=== PATIENT | male | born 1955 | race Caucasian/White ===

== ENCOUNTER 2017-04-01 12:25 | Inpatient (IN) | payer MEDICARE, BC, OTHER ==
[2017-04-01] VITALS (29 sets, daily range): BP systolic 97–158; BP diastolic 54–95; O2SAT 98
[~2017-04-01] VITALS: Ht 175.3 cm; Wt 138.8 kg
[2017-04-01] MEDS ORDERED: ONDANSETRON 4MG/2ML VIAL (J2405) IV PRN (12:45)
[2017-04-01 16:48] LABS: BASO % 0.3 % (0.0-1.0); EOS # 0.2 K/mm3 (0.0-0.50); EOS % 3.2 % (0.0-3.0); LARGE UNSTAINED CELL # 0.2 K/mm3 (0.0-0.4); LARGE UNSTAINED CELL % 3.2 % (0.0-4.0); LYMPH % 13.5 % (24.0-44.0); MEAN CORPUSCULAR HGB CONC 34.4 g/dl (32.0-36.5); MEAN CORPUSCULAR VOLUME 104.6 fl (80.0-96.0); MONO # 0.6 K/mm3 (0.0-0.8); NEUTROPHILS # 5.4 K/mm3 (1.8-7.7); NEUTROPHILS % 71.7 % (36.0-66.0); PLATELET COUNT, AUTOMATED 130 k/mm3 (150-450); RED CELL DISTRIBUTION WIDTH 12.7 % (11.5-14.5); WHITE BLOOD COUNT 7.6 K/mm3 (4.0-10.0)
[2017-04-01] MEDS ORDERED: CALC600T31 PO (16:57)
[2017-04-01] MEDS ORDERED: CALC500T49 PO (16:57)
[2017-04-01] MEDS ORDERED: TYLE325T5 PO (16:57)
[2017-04-01] MEDS ORDERED: LISI10TA4 PO (16:57)
[2017-04-01] MEDS ORDERED: ATEN50TA2 PO (16:57)
[2017-04-01] MEDS ORDERED: TRAM50TA2 PO (16:57)
[2017-04-01] MEDS ORDERED: POTA10CA PO (16:57)
[2017-04-01] MEDS ORDERED: ROCE1INJ4 INJ (16:57)
[2017-04-01] MEDS ORDERED: PRED1TABL PO (16:57)
[2017-04-01] MEDS ORDERED: PROT1TAB2 PO (16:57)
[2017-04-01] MEDS ORDERED: NYST10PW TOP (16:57)
[2017-04-01 16:58] LABS: INR 1.67
--- NOTE | 2017-04-01 16:58 | REP ---
Clinical: Chest pain. Rule out pneumonia. Comparison: None. Findings: Mediastinal adenopathy and perihilar atelectasis cannot be excluded. Evaluation is otherwise limited due to portable technique and underpenetration. Impression: Cannot exclude hilar opacities or perihilar atelectasis. Signed by Davie Echevarria MD 04/01/2017 04:49 P
[2017-04-01] MEDS ORDERED: traMADol 50 MG TAB PO PRN (17:00)
[2017-04-01] MEDS ORDERED: IPRASOL4 INH (17:00)
[2017-04-01] MEDS ORDERED: VITMTA PO (17:00)
[2017-04-01] MEDS ORDERED: LORA10TA2 PO (17:00)
[2017-04-01] MEDS ORDERED: VITA10002 PO (17:00)
[2017-04-01 17:12] LABS: ALBUMIN 2.1 GM/DL (3.2-5.2); ALBUMIN/GLOBULIN RATIO 0.58 (1.00-1.93); ALKALINE PHOSPHATASE 138 U/L (45-117); ALT/SGPT 34 U/L (12-78); ANION GAP 7 MEQ/L (8-16); AST/SGOT 121 U/L (15-37); BILIRUBIN,TOTAL 4.1 MG/DL (0.2-1.0); BLOOD UREA NITROGEN 8 MG/DL (7-18); CALCIUM LEVEL 7.4 MG/DL (8.8-10.2); CARBON DIOXIDE LEVEL 33 MEQ/L (21-32); CHLORIDE LEVEL 93 MEQ/L (98-107); CREATININE FOR GFR 0.56 MG/DL (0.70-1.30); GAMMA GLUTAMYLTRANSPEPTIDASE 412 U/L (15-85); GLOMERULAR FILTRATION RATE > 60.0 (>49); GLUCOSE, FASTING 99 MG/DL (80-110); POTASSIUM SERUM 3.8 MEQ/L (3.5-5.1); SODIUM LEVEL 133 MEQ/L (136-145); TOTAL PROTEIN 5.7 GM/DL (6.4-8.2)
[2017-04-01 17:16] LABS: THYROXINE (T4) 9.7 UG/DL (4.5-12.0)
[2017-04-01] MEDS ORDERED: ISOVUE-370 76% 100ML VIAL (Q9967) As Ordered ONE (17:38)
[2017-04-01] MEDS ORDERED: MAG SULF 1GM/100ML (MAG RUN) 1 GM in APPROPRIATE DILUENT 1 EA IV ONE (18:00)
--- NOTE | 2017-04-01 18:26 | REP ---
Clinical: Acute chest pain. Technique: Axial contrast enhanced images from the thoracic inlet to the upper abdomen using 100 ml Isovue 370 intravenous contrast material with coronal and sagittal re-formations. Findings: Satisfactory enhancement of the pulmonary vasculature is achieved and no filling defects are identified to suggest pulmonary embolus. Qkhvjtxs-tk-fjtgl bilateral pleural effusions and lower lobe atelectasis is appreciated along with cephalization and prominent pulmonary vasculature. Thoracic aorta is normal caliber without aneurysm or dissection. Heart and pericardium are normal. No pneumothorax. No obvious adenopathy. Surrounding musculoskeletal structures demonstrate age-related degenerative changes. Impression: No evidence for pulmonary embolus. Wccoqway-sk-nxawx bilateral pleural effusions with passive basilar atelectasis and cephalization. Findings suggest pulmonary venous congestion. Signed by Davie Echevarria MD 04/01/2017 06:17 P
[2017-04-01] MEDS ORDERED: INFLUENZA QUADRIVALENT PF VACCINE 0.5ML SYRINGE (90686) IM PRN (18:30)
--- NOTE | 2017-04-01 18:31 | REP ---
Clinical: Abdominal pain and distension. Technique: Axial contrast enhanced images from the lung bases to the pubic symphysis using 100 ml Isovue 370 intravenous contrast material with coronal and sagittal re-formations. Comparison: None. Findings: Lung bases demonstrate moderate to large pleural effusions and passive atelectasis. Visualized portions of the heart and pericardium appear normal and without cardiomegaly or significant atherosclerotic changes. Marked ascites is appreciated throughout the abdomen and pelvis. The liver demonstrates a subtle heterogeneity along with 1 cm simple cyst in the left lobe. Increased vasculature throughout the upper abdomen is appreciated. Findings may reflect a fluid changes related to hepatocellular disease including cirrhosis. Spleen, pancreas, bilateral adrenal glands and left kidney are normal. Right kidney includes 2 cm simple cyst. The enteric system is without obstruction or acute inflammatory process. Pelvis demonstrates normal bladder and age appropriate prostate/seminal vesicles. No free air. No obvious retroperitoneal adenopathy. Abdominal aorta without aneurysm or dissection. Musculoskeletal structures demonstrate age-related degenerative changes without focal osseous abnormality. Impression: 1. Marked ascites and heterogeneous appearance to the liver along with increased upper abdominal vasculature suggests hepatocellular disease and/or cirrhosis. 2. Incidental 1 cm hepatic cyst and 2 cm right renal cyst. 3. Lyvnqhgi-lh-khsog bilateral pleural effusions with passive atelectasis. Signed by Davie Echevarria MD 04/01/2017 06:22 P
[2017-04-01] MEDS: methylPREDNISolone INJ 125 MG/2 ML VIAL (J2930) IV SCH (18:35)
[2017-04-01] MEDS: PANTOPRAZOLE 40MG INJ (PROTONIX) (C9113) IV SCH (18:35)
[2017-04-01] MEDS: SPIRONOLACTONE 12.5MG PER 1/2 TABLET PO SCH (18:39)
[2017-04-01] MEDS: FUROSEMIDE 40 MG/4 ML VIAL (J1940) IV SCH (18:39)
--- NOTE | 2017-04-01 19:04 | HPE ---
DATE OF ADMISSION: 04/01/2017 PRIMARY CARE PROVIDER: Annie Medina COMMERCIAL DRAFTER: In the process of getting set up with Dr. Celeste. CHIEF COMPLAINT: Shortness of breath. HISTORY OF PRESENT ILLNESS: This is a 62-year-old male with an underlying medical history of morbid obesity, gastric bypass, obstructive sleep apnea, hypertension, congestive heart failure (CHF) with unknown ejection fraction, cirrhosis, alcohol abuse, pulmonary artery hypertension, bariatric surgery. The patient presented to [facility] with shortness of breath and worsening lower extremity swelling that has been present for the past month, was admitted to [facility] three days ago with persistent diarrhea. Initially, the patient improved. Over the course of the night, the patient developed an episode of fever with diarrhea times three and was also found to have pneumonia, as per physician's retail assistant at [facility]. Subsequently, request was made to transfer the patient to [facility] for further care. The patient denies any chest pain, pressure, or discomfort, abdominal pain. Does report worsening lower extremity swelling and worsening abdominal distention. Reported cough for the past week or so. Denies any chest pain. Currently denies any fevers or chills. Reported drinking 1/5th bottle of vodka, but the patient has been trying to cut down to about five beers. Last drink was 1 week ago. ALLERGIES: No known drug allergies. PAST MEDICAL HISTORY: 1. Morbid obesity with Chente-en-Y gastric bypass. 2. Hypertension. 3. Congestive heart failure (CHF), unknown ejection fraction. 4. Cirrhosis. 5. Alcohol abuse. 6. Pulmonary artery hypertension. 7. Obstructive sleep apnea on BiPAP. PAST SURGICAL HISTORY: 1. Cholecystectomy. 2. Gastric bypass. FAMILY HISTORY: Not contributing to the patient's current condition. Denies a family history of any cancer. SOCIAL HISTORY: The patient smokes cigars. Drinks about 1/5th bottle of vodka daily. Has been trying to cutdown to about four beers a day. Last drink was about 4 or 5 days ago. REVIEW OF SYSTEMS: The patient reported abdominal distention, lower extremity swelling and shortness of breath and cough. All other review of systems negative. Also reported by the physician's retail assistant that the patient had diarrhea at [facility], as well as one episode of fever. All other review of systems negative. MEDICATIONS: Prior to admission: The patient was given Rocephin and azithromycin at [facility] - acetaminophen 650 mg by mouth every 4 hours as needed - DuoNeb inhalation every 4 hours as needed - atenolol 10 mg by mouth daily - calcium 600 mg by mouth daily - vitamin B12 1000 mcg by mouth daily - Lisinopril 10 mg by mouth daily - loratadine 10 mg by mouth daily - multivitamin one tablet by mouth daily - nystatin powder topically daily - Protonix 40 mg by mouth daily - potassium chloride 10 mEq by mouth twice a day - prednisone 2 mg by mouth daily - tramadol 50 mg by mouth four times a day as needed PHYSICAL EXAMINATION : VITAL SIGNS: Temperature 98, pulse 84, respirations 22, blood pressure 120/77, pulse oximetry 95% on 2 liters nasal cannula. GENERAL: The patient is morbidly obese, alert and oriented times three. No acute distress. Pleasant. HEENT: Normocephalic, atraumatic. PULMONARY: Bilateral expiratory wheeze. Minimal rhonchi. CARDIAC: Regular S1, S2. ABDOMEN: Obese, distended, nontender. Hypoactive bowel sounds. EXTREMITIES: 3+ bilateral lower extremity edema. LABORATORY DATA: WBC 7.6, hemoglobin and hematocrit 13.5/39.2, platelets 130. Chemistry: Sodium 133, potassium 3.8, chloride 93, bicarbonate 33, BUN 8, creatinine 0.56, bilirubin 4.1, INR 1.67, C-reactive protein 9.16. ASSESSMENT AND PLAN: This is a 62-year-old male patient with underlying medical history of morbid obesity with gastric bypass, hypertension, congestive heart failure (CHF) with unknown ejection fraction, cirrhosis, alcohol abuse, pulmonary artery hypertension, obstructive sleep apnea, chronic obstructive pulmonary disease (COPD), smokes cigars, transferred from [facility] for fevers, diarrhea and worsening shortness of breath and found to have pneumonia. 1. Episode of fever with diarrhea and cough. Followup blood cultures and sputum cultures, respiratory panel, and gastrointestinal panel. The patient is on Rocephin and azithromycin for presumed pneumonia. C-reactive protein appreciated. Chest x-ray appreciated. 2. Chronic obstructive pulmonary disease (COPD) exacerbation. The patient is having significant wheeze on physical examination. Nebulizer treatment. Solu-Medrol has been ordered. Continue antibiotics, as mentioned above. Followup C-reactive protein. 3. Shortness of breath secondary to fluid overload. Possibly CHF exacerbation, also possibly related to cirrhosis. Ultrasound shows ascites. We will get CT scan for additional studies and confirmation. Diuresis with Lasix and spironolactone. Echocardiogram. Cardiac enzymes appreciated. BNP appreciated. Telemetry monitoring. 4. Hypertension. The patient is currently with borderline blood pressure. Holding rxrlbpzvwsp-fcrowvczid-tgnhsq (GIANNA) inhibitor given possibly for paracentesis. Continue Lasix and spironolactone for edema. 5. Cirrhosis with ascites secondary to alcohol with underlying alcoholic hepatitis. The patient's MELD score is 21. Discriminate function of 41.8. The patient will benefit from steroids. Currently, the patient is on Solu-Medrol for COPD. We will eventually switch it to prednisone. 6. Alcoholic hepatitis. Continue proton pump inhibitor. Continue atenolol. Monitor hemoglobin and hematocrit. Continue Rocephin. We will see if the patient's ascites are significant enough to do a paracentesis. Continue diuretics as ordered. 7. Alcohol abuse. Counseling provided. The patient has not drank for the past 4 to 5 days. 8. Pulmonary artery hypertension. Encourage CPAP. Echo ordered. 9. Obstructive sleep apnea. Encourage CPAP. Echo has been ordered. 10. Obesity, complicating care. 11. Deep vein thrombosis (DVT) prophylaxis. Heparin subcutaneously. DISPOSITION: Pending further workup, diuresis, echocardiogram and clinical improvement of pneumonia. We will get GI panel given the patient had diarrhea.
[2017-04-01] MEDS: IPRATROPIUM 0.5MG/ALBUTEROL 2.5MG INH SOL UD 3ML (DUONEB)(J7620) NEB SCH (19:54)
[2017-04-01 20:56] LABS: TOTAL PROTEIN, BODY FLUID 0.7 G/DL (NOT ESTABLISHED)
[2017-04-01 20:58] LABS: BF DIFF IF INDICATED? YES (NO); RBC ASCITES FLUID < 10 (<10mm3 cells/uL); TNC ASCITES FLUID 218 cells/uL (0-20)
[2017-04-01] MEDS ORDERED: OXAZEPAM 10 MG CAP PO PRN (21:15)
[2017-04-01] MEDS: HEPARIN SOD (PORCINE) 5000 UNITS/ML VIAL SC SCH (21:40)
[2017-04-01] MEDS: IPRATROPIUM 0.5MG/ALBUTEROL 2.5MG INH SOL UD 3ML (DUONEB)(J7620) NEB PRN (23:25)
[2017-04-01 23:48] LABS: CC BF DIFF EXAM CYTOCENTRIFUGE
[2017-04-02] VITALS (18 sets, daily range): BP systolic 94–139; BP diastolic 56–87
[2017-04-02] MEDS: IPRATROPIUM 0.5MG/ALBUTEROL 2.5MG INH SOL UD 3ML (DUONEB)(J7620) NEB SCH ×4 (02:00→20:00)
[2017-04-02 04:30] LABS: MEAN CORPUSCULAR HEMOGLOBIN 36.3 pg (27.0-33.0); MEAN CORPUSCULAR VOLUME 103.7 fl (80.0-96.0); RED CELL DISTRIBUTION WIDTH 12.9 % (11.5-14.5); WHITE BLOOD COUNT 4.5 K/mm3 (4.0-10.0)
[2017-04-02] MEDS: IPRATROPIUM 0.5MG/ALBUTEROL 2.5MG INH SOL UD 3ML (DUONEB)(J7620) NEB PRN (04:38)
[2017-04-02 04:41] LABS: INR 1.78
[2017-04-02 04:55] LABS: ALBUMIN 1.9 GM/DL (3.2-5.2); ALBUMIN/GLOBULIN RATIO 0.51 (1.00-1.93); ALKALINE PHOSPHATASE 110 U/L (45-117); ALT/SGPT 29 U/L (12-78); ANION GAP 8 MEQ/L (8-16); AST/SGOT 90 U/L (15-37); BILIRUBIN,TOTAL 3.2 MG/DL (0.2-1.0); BLOOD UREA NITROGEN 10 MG/DL (7-18); CALCIUM LEVEL 8.2 MG/DL (8.8-10.2); CARBON DIOXIDE LEVEL 31 MEQ/L (21-32); CHLORIDE LEVEL 95 MEQ/L (98-107); CREATININE FOR GFR 0.51 MG/DL (0.70-1.30); GLOMERULAR FILTRATION RATE > 60.0 (>49); GLUCOSE, FASTING 153 MG/DL (80-110); MAGNESIUM LEVEL 1.8 MG/DL (1.8-2.4); PHOSPHORUS LEVEL 3.4 MG/DL (2.5-4.9); POTASSIUM SERUM 3.4 MEQ/L (3.5-5.1); SODIUM LEVEL 134 MEQ/L (136-145); TOTAL PROTEIN 5.6 GM/DL (6.4-8.2)
[2017-04-02] MEDS: FUROSEMIDE 40 MG/4 ML VIAL (J1940) IV SCH ×2 (05:51→17:56)
[2017-04-02] MEDS: methylPREDNISolone INJ 125 MG/2 ML VIAL (J2930) IV SCH ×2 (05:51→17:55)
[2017-04-02] MEDS: HEPARIN SOD (PORCINE) 5000 UNITS/ML VIAL SC SCH ×3 (05:51→21:24)
[2017-04-02] MEDS ORDERED: POTASSIUM CHLORIDE 10 MEQ SR TABLET PO ONE ×2 (06:00→07:30)
--- NOTE | 2017-04-02 08:18 | RO ---
DATE OF PROCEDURE: 04/01/2017 PREPROCEDURE DIAGNOSIS: Ascites. POSTPROCEDURE DIAGNOSIS: Ascites. PROCEDURE: Paracentesis. SURGEON: Dr. Roula Drummond. BAND STRAIGHTENER: SEDATION: None. VENTILATION: Room air. ANESTHESIA: 1% local lidocaine. ESTIMATED BLOOD LOSS: Minimal. DESCRIPTION OF PROCEDURE: The patient was placed in the left lateral decubitus position. Ultrasound was used to locate the pocket of fluid. The patient was cleaned with ChloraPrep and covered in a sterile manner. 1% local lidocaine was used for superficial injection finding for deep injection. The skin was nicked and paracentesis needle was inserted. Skin traction was produced and paracentesis needle was inserted. Yellow clear fluids were obtained and subsequent catheter was advanced over the needle. Unfortunately, after only a tiny bit of fluid that was taken, the flow stopped despite repositioning. Two attempts were made. Each attempt after only a small amount of ascites fluid was obtained. The flow stops. Ultrasound was used to locate pockets of fluids on both attempts. The procedure was abandoned and fluid sample was sent. The catheter was removed and a dressing was placed. The patient tolerated the procedure with no complications. Fluid sample was sent off for additional analysis.
--- NOTE | 2017-04-02 08:20 | IPN ---
DATE OF SERVICE: 04/02/2017 A 62-year-old gentleman seen at bedside. No overnight issues reported. He is resting comfortably. He denies chest pain, dyspnea on exertion, abdominal pain. He does have some distention that he states is more than normal and was attempted to paracentesis yesterday; and, apparently, we were only able to get 30 mL. I did discuss with him trying again either today or tomorrow. Apparently, we do not have a provider in radiology to perform paracentesis until tomorrow. At any rate, this does not appear to be an emergent need for today. OBJECTIVE: Temperature is 97.1, pulse 87, respiratory rate is 18, blood pressure (BP) 114/69, SpO2 is 95% on bilateral positive airway pressure (BiPAP), which he uses for obstructive sleep apnea. HEENT: Unremarkable. Lungs: Clear. Heart: Regular rate and rhythm. Abdomen is obese, soft. There is some notable fluid wave, but he is nontender. Extremities: Trace edema at the ankles. Otherwise, unremarkable. No calf tenderness. LABORATORY DATA: White count 4.5, hemoglobin 12.5, platelets 107,000. Sodium is 134, potassium 3.4, chloride 95, bicarbonate 31, anion gap 8, BUN 10, creatinine 0.51, glucose is 153, magnesium 1.8, total bilirubin 3.2 down from 4.1, AST 90, ALT 29, alkaline phosphatase 110, albumin 1.9. PT 21.3, INR 1.78. Ascitic fluid was sent. It was only noted for 218 nucleated cells, normal whites. Neutrophils and lymphocytes were noted. A fluid culture is pending at this time. A panel is positive for rhinovirus and enterovirus. Urine culture is pending. ASSESSMENT AND PLAN: 1. Recurrent fevers, likely related to acute upper respiratory infection combined with gastroenteritis with rhinovirus and enterovirus. Will continue with symptomatic treatment. Chest x-ray is unremarkable for infiltrate or consolidation. 2. Shortness of breath, likely due to volume overload and cirrhosis and ascites. Will re-attempt to get an ultrasound-guided paracentesis tomorrow. 3. Ascites, as outlined above. Will continue to diurese with Lasix and spironolactone and see if we can get a paracentesis. 4. Cirrhosis, likely related to underlying alcoholism with alcoholic hepatitis. On admission, Model for End-Stage Liver Disease (MELD) score was 21. Discriminant function was 41.8 which is indicative of steroids and Rifaximin which we will start. 5. Alcoholic hepatitis. Will continue on proton pump inhibitor (PPI). Continue with antibiotics until our cultures are back to rule out spontaneous bacterial peritonitis (SBP). 6. Hypokalemia. Will replete. 7. Hypoalbuminemia. Will give him albumin transfusion today, as well. 8. Thrombocytopenia, likely related to underlying cirrhosis. 9. Deep venous thrombosis (DVT) prophylaxis, thromboembolic deterrents (TEDs) and sequentials. 10. History of congestive heart failure (CHF), unknown ejection fraction. Will continue to monitor. He is currently on Lasix and spironolactone. 11. Hypertension. Continue to monitor. 12. Obstructive sleep apnea. Continue on home settings for BiPAP. DISPOSITION: The patient does have a known history of alcohol and alcoholic cirrhosis with recurrent hepatitis and ascites. Will continue with treatment, as outlined above. I would like to have patient and family services (PFS) be involved and make sure that we have outpatient resources available when he moves closer to discharge. Regarding the prednisone, he will be on month-long taper. MTDD
[2017-04-02] MEDS: LORATADINE 10 MG TAB PO SCH (08:34)
[2017-04-02] MEDS: FOLIC ACID 1 MG TAB PO SCH (08:34)
[2017-04-02] MEDS: AZITHROMYCIN INJ 500 MG, VIAL MATE ADAPTER 1 EACH in D5W 250 ML IV SCH (08:34)
[2017-04-02] MEDS: CYANOCOBALAMIN 500 MCG TAB PO SCH (08:34)
[2017-04-02] MEDS: SPIRONOLACTONE 12.5MG PER 1/2 TABLET PO SCH ×2 (08:34→17:55)
[2017-04-02] MEDS: rifAXIMin 550 MG TAB (XIFAXAN) PO SCH ×2 (08:35→21:23)
[2017-04-02] MEDS: MULTIVITAMINS/MINERALS THERAP 1 TAB PO SCH (08:35)
[2017-04-02] MEDS: ATENOLOL 50 MG TAB PO SCH (08:35)
[2017-04-02] MEDS: THIAMINE 100 MG TAB PO SCH (08:35)
[2017-04-02] MEDS: NYSTATIN 100,000 UNITS/GM TOPICAL PWD 15 GM TOP SCH (09:00)
--- NOTE | 2017-04-02 12:37 | ECHO ---
DATE OF PROCEDURE: 04/01/2017 DATE OF : 1955 AGE: 62 GENDER: Male HEIGHT: 69 inches WEIGHT: 326 pounds BODY SURFACE AREA: 2.54 meters squared INPATIENT: ICU, Room 3209 REFERRING PHYSICIAN: Dr. Drummond INDICATION: CHF (unspecified). MEASUREMENTS: 2D Measurements: RV: 4.6 cm LV: 5.6 cm Septum: 1.1 cm Posterior wall: 1.1 cm Aortic root: 4.2 cm LA: 5.2 cm LVEF: 60-65% Doppler Measurements: AV: 1.4 m/s LVOT: 1.1 m/s MV-E: 77, A: 87, EA ratio: 0.9 Early mitral deceleration time: 250 ms E prime: 6.4, A prime: 14, E/E prime ratio: 12 COMMENTS: Normal sinus rhythm without apparent intraventricular conduction disturbance. Technically very difficult study in light of the patient's body habitus, but some diagnostically useful information was still obtained. Mild to moderately dilated left atrium with left ventricle mildly dilated. Right heart chamber sizes were at least mild to moderately increased. Left ventricular (LV) wall thickness was normal. On real-time imaging from the parasternal and apical projections, there appeared to be a degree of septal wall motion abnormality and flattening of the septum on the short axis projection from the parasternal sites. Other left ventricular tirado were hyperkinetic. No clear abnormality of the mitral valve with adequate leaflet excursion and no posterior systolic buckling. Unable to ascertain the number of aortic cusps but aortic cusp separation appeared to be normal. Aortic root was mildly dilated. There also appeared to be a small anterior echo free space but no evidence of cardiac chamber compression. Color flow Doppler study taken from the parasternal and apical projections showed trace mitral and tricuspid but no aortic insufficiency. Guided continuous wave Doppler of his aortic valve showed a normal peak systolic velocity against LV outflow tract obstruction. Pulsed and continuous wave Doppler of his LV inflow tract taken from the apical four-chamber projection showed normal diastolic filling velocities against mitral stenosis. There was more prominent late diastolic/atrial dependent filling pattern. Diastolic dysfunction was further confirmed by prolonged early mitral deceleration time and tissue Doppler of his mitral annulus. However, his estimated mean left atrial pressure at this time was within normal limits. We attempted to estimate his right ventricular systolic pressure using guided continuous wave Doppler of his tricuspid valve but could not get a clear spectral envelope. In light of his body habitus, we could not visualize his inferior vena cava to further estimate his central venous pressure. CONCLUSIONS: Technically difficult study in light of the patient's body habitus. Mildly dilated left ventricle with normal wall thickness and septal wall motion abnormality suspected to be due to right ventricular pressure overload. Preserved global left ventricular systolic function. Mild-moderately dilated left atrium with Doppler evidence of an impairment of LV diastolic function but currently normal estimated mean left atrial pressure. Mild-moderately dilated right heart chambers with somewhat reduced right ventricular wall motion, certainly in keeping with pulmonary hypertension, though we could not estimate this using guided continuous wace Doppler of his tricuspid valve. His inferior vena cava could not be visualized to estimate his central venous pressure. Very small pericardial effusion without evidence of cardiac chamber compression.
--- NOTE | 2017-04-02 13:21 | ECGEPIP ---
Stationary ECG Study [facility] Test Date: 2017-04-01 Pat Name: ELIAS OCONNOR Department: Room: [place] [address] Gender: M Wound Nurse: LOWELL : 1955 Requested By: GENTRY MIRANDA Order Number: [id number] Reading MD: Antolin Suh Measurements Intervals [place] Rate: 84 P: 58 WY: 152 QRS: 0 QRSD: 88 T: 31 QT: 406 QTc: 482 Interpretive Statements SINUS RHYTHM LOW QRS VOLTAGE IN PRECORDIAL LEADS Body habitus versus pulmonary disease. No prior tracing Electronically Signed On 04-02-2017 13:21:32 EDT by Antolin Suh
[2017-04-02] MEDS: cefTRIAXone SOD 2 GM in D5W MINI-BAG PLUS 50 ML IV SCH (14:08)
[2017-04-02] MEDS: PANTOPRAZOLE 40MG INJ (PROTONIX) (C9113) IV SCH (17:56)
[2017-04-03] VITALS (14 sets, daily range): BP systolic 103–132; BP diastolic 63–85
[2017-04-03] MEDS: IPRATROPIUM 0.5MG/ALBUTEROL 2.5MG INH SOL UD 3ML (DUONEB)(J7620) NEB SCH ×4 (01:07→20:00)
[2017-04-03 04:54] LABS: MEAN CORPUSCULAR HEMOGLOBIN 35.8 pg (27.0-33.0); MEAN CORPUSCULAR HGB CONC 34.3 g/dl (32.0-36.5); MEAN CORPUSCULAR VOLUME 104.2 fl (80.0-96.0); RED CELL DISTRIBUTION WIDTH 13.1 % (11.5-14.5); WHITE BLOOD COUNT 7.7 K/mm3 (4.0-10.0)
[2017-04-03 05:04] LABS: INR 1.76
[2017-04-03 05:17] LABS: ALBUMIN 2.1 GM/DL (3.2-5.2); ALKALINE PHOSPHATASE 107 U/L (45-117); ALT/SGPT 29 U/L (12-78); ANION GAP 9 MEQ/L (8-16); AST/SGOT 67 U/L (15-37); BILIRUBIN,TOTAL 2.3 MG/DL (0.2-1.0); BLOOD UREA NITROGEN 12 MG/DL (7-18); CALCIUM LEVEL 8.3 MG/DL (8.8-10.2); CARBON DIOXIDE LEVEL 31 MEQ/L (21-32); CHLORIDE LEVEL 98 MEQ/L (98-107); CREATININE FOR GFR 0.42 MG/DL (0.70-1.30); GLOMERULAR FILTRATION RATE > 60.0 (>49); GLUCOSE, FASTING 151 MG/DL (80-110); POTASSIUM SERUM 3.4 MEQ/L (3.5-5.1); SODIUM LEVEL 138 MEQ/L (136-145); TOTAL PROTEIN 5.6 GM/DL (6.4-8.2)
[2017-04-03] MEDS: HEPARIN SOD (PORCINE) 5000 UNITS/ML VIAL SC SCH ×3 (05:51→21:31)
[2017-04-03] MEDS: FUROSEMIDE 40 MG/4 ML VIAL (J1940) IV SCH ×2 (05:51→17:20)
[2017-04-03] MEDS: methylPREDNISolone INJ 125 MG/2 ML VIAL (J2930) IV SCH ×2 (05:51→17:19)
[2017-04-03] MEDS: CYANOCOBALAMIN 500 MCG TAB PO SCH (08:55)
[2017-04-03] MEDS: AZITHROMYCIN INJ 500 MG, VIAL MATE ADAPTER 1 EACH in D5W 250 ML IV SCH (08:55)
[2017-04-03] MEDS: LORATADINE 10 MG TAB PO SCH (08:55)
[2017-04-03] MEDS: SPIRONOLACTONE 12.5MG PER 1/2 TABLET PO SCH ×2 (08:55→17:19)
[2017-04-03] MEDS: ATENOLOL 50 MG TAB PO SCH (08:56)
[2017-04-03] MEDS: THIAMINE 100 MG TAB PO SCH (08:56)
[2017-04-03] MEDS: MULTIVITAMINS/MINERALS THERAP 1 TAB PO SCH (08:56)
[2017-04-03] MEDS: rifAXIMin 550 MG TAB (XIFAXAN) PO SCH ×2 (08:56→21:30)
[2017-04-03] MEDS: FOLIC ACID 1 MG TAB PO SCH (08:56)
[2017-04-03] MEDS: NYSTATIN 100,000 UNITS/GM TOPICAL PWD 15 GM TOP SCH (08:57)
[2017-04-03 12:52] LABS: SPEC. GRAVITY BODY FLUIDS 1.009 (NOT ESTABLISHED)
[2017-04-03] MEDS ORDERED: POTASSIUM CHLORIDE 10 MEQ SR TABLET PO ONE (13:00)
[2017-04-03 13:28] LABS: TOTAL PROTEIN, BODY FLUID 0.7 G/DL (NOT ESTABLISHED)
--- NOTE | 2017-04-03 13:55 | IPN ---
DATE OF EXAMINATION: 04/03/2017 SUBJECTIVE: This morning, the patient tells me that his breathing is feeling better but is not back to normal, but he does notice improvement over the last 24 hours. He denies chest pain, shortness of breath, lightheadedness, dizziness, or abdominal pain. OBJECTIVE: Vital signs: Temperature 98.8, pulse 81 regular, respiratory rate 20, blood pressure (BP) 114/71, oxygen (O2) saturation 93% on 2 liters nasal cannula. General: He is a morbidly obese man sitting peacefully, on his continuous positive airway pressure (CPAP), easily arousable with verbal stimuli. He does not appear to be in any acute distress. He was awake, alert, oriented times three. HEENT: He is wearing bifocal glasses. He has moist mucous membranes. No appreciable elevation in central venous pressure (CVP). Otherwise, a difficult examination secondary to enlarged neck and body habitus. Cardiovascular examination: S1, S2. He is not tachycardic at the time of my examination. Respiratory examination: Is quite clear. Abdominal examination: Is grossly obese. Shifting dullness. There is no tense ascites. Extremities: 1+ edema bilaterally. No asterixis. LABORATORY STUDIES: WBC 7.7, hemoglobin 0.9, platelet count 114. Chemistry panel: Sodium 138, potassium 3.4 repleted, chloride 98, bicarbonate 31, BUN 12, creatinine 0.4, AST 67 trending down, TSH within normal limits. INR 1.7. Ascites fluid studies reveals a total nucleated count of 218. MICROBIOLOGY: Is all thus far negative other than a human rhinovirus PCR which was positive. He received three infusions of albumin. IMAGING: He had a CT of the abdomen and pelvis that was completed on 04/01/2017 which revealed marked ascites and heterogeneous appearance to the liver along with increased upper abdominal vasculature suggesting hepatocellular disease or cirrhosis. Also, incidental 1 cm hepatic cyst and 2 cm right renal cyst. Odqtdynk-ry-qzqpp bilateral pleural effusions with passive atelectasis. He also did have a CT angiogram of the chest, which revealed no evidence of pulmonary embolism (PE). Mcfyrsqa-fx-owkkl bilateral pleural effusions with passive basilar atelectasis and cephalization consistent with pulmonary venous hypertension. ASSESSMENT AND PLAN: This is a 62-year-old man with rhinovirus infection. PROBLEMS: 1. Rhinovirus infection, likely the etiology for his fevers. Continue with symptomatic treatment and supportive care. My suspicion for a bacterial infection is low. Discontinuing all antibiotics. Continue with breathing treatments and weaning oxygen as tolerated. 2. Shortness of breath, hypoxia, possibly related to an infection. Also, likely a contributing factor of decompensated cirrhosis. We will continue to diurese him in an effort to keep him fluid negative. He does appear to be hypervolemic still. We will also complete another paracentesis today and remove excess volume and allowing his diaphragm to more easily inflate. I suspect that he will be significantly improved with the aforementioned efforts. 3. Liver cirrhosis, likely related to alcoholism and alcoholic hepatitis. AST is trending down. He is continued on beta joseph, thiamine, folic acid, rifaximine, Lasix, and Aldactone. 4. Pulmonary artery hypertension. The patient is currently on Solu-Medrol but can likely be transitioned to by mouth and transitioned to prednisone for his alcoholic liver cirrhosis and does not appear to be experiencing chronic obstructive pulmonary disease (COPD) exacerbation or any acute pneumonia. 5. Alcoholic hepatitis. As mentioned above, will continue to monitor. He does appear to be improving with avoidance of alcohol. He does not appear to be positive for spontaneous bacterial peritonitis (SBP). 6. Hypokalemia. Continue with diuresis. Will continue to replete. 7. Thrombocytopenia, likely related to cirrhosis. 8. Congestive heart failure. Likely related to liver disease. An echocardiogram was completed, which revealed an ejection fraction (EF) of 60% to 65%. There were moderately dilated right heart chambers, in keeping with pulmonary hypertension. 9. Hypertension. Continue with beta joseph. 10. Alcohol abuse. He is on folate, thiamine, multivitamin. We are monitoring closely all symptoms. He is not exhibiting any at this time. DISPOSITION: The patient could likely be discharged as early as tomorrow pending his improvement in shortness of breath.
[2017-04-03] MEDS: cefTRIAXone SOD 2 GM in D5W MINI-BAG PLUS 50 ML IV SCH (14:29)
--- NOTE | 2017-04-03 16:45 | REP ---
Ultrasound-guided paracentesis The procedure was performed under the direct supervision of Dr. Falcon. The risks and benefits of the procedure were explained to the patient and informed consent was obtained. The largest pocket of fluid was localized in the right lower quadrant using ultrasound guidance. The skin was prepped and draped in a sterile fashion. 1% lidocaine was used as a local anesthetic. Using ultrasound guidance an 8-Faroese multi side-hole catheter was inserted using trocar technique. 4950 ml of yellow colored fluid was withdrawn with a sample sent to the lab for analysis. The the patient tolerated the procedure well and there were no immediate complications. After the appropriate amount of monitored convalescence the patient was discharged from the department. Reviewed by FREDERIC Soto 04/03/2017 04:37 PSigned by Guicho Falcon MD 04/03/2017 04:37 P
[2017-04-03 16:52] LABS: RBC ASCITES FLUID < 10 (<10mm3 cells/uL); TNC ASCITES FLUID 106 cells/uL (0-20)
[2017-04-03 16:53] LABS: BF DIFF IF INDICATED? YES (NO)
[2017-04-03 16:54] LABS: CC BF DIFF EXAM CYTOCENTRIFUGE
[2017-04-03] MEDS: PANTOPRAZOLE 40MG INJ (PROTONIX) (C9113) IV SCH (17:20)
[2017-04-04] MEDS: IPRATROPIUM 0.5MG/ALBUTEROL 2.5MG INH SOL UD 3ML (DUONEB)(J7620) NEB SCH ×4 (00:52→20:23)
[2017-04-04] MEDS: methylPREDNISolone INJ 125 MG/2 ML VIAL (J2930) IV SCH (05:42)
[2017-04-04] MEDS: HEPARIN SOD (PORCINE) 5000 UNITS/ML VIAL SC SCH ×3 (05:42→21:03)
[2017-04-04] MEDS: FUROSEMIDE 40 MG/4 ML VIAL (J1940) IV SCH ×2 (05:43→17:36)
[2017-04-04 06:00] VITALS: BP 129/74
[2017-04-04 07:41] LABS: MEAN CORPUSCULAR HEMOGLOBIN 35.8 pg (27.0-33.0); MEAN CORPUSCULAR HGB CONC 33.9 g/dl (32.0-36.5); MEAN CORPUSCULAR VOLUME 105.4 fl (80.0-96.0); RED CELL DISTRIBUTION WIDTH 12.7 % (11.5-14.5); WHITE BLOOD COUNT 8.4 K/mm3 (4.0-10.0)
[2017-04-04 07:43] LABS: INR 1.65
[2017-04-04 08:10] LABS: ALBUMIN 2.7 GM/DL (3.2-5.2); ALBUMIN/GLOBULIN RATIO 0.69 (1.00-1.93); ALKALINE PHOSPHATASE 143 U/L (45-117); ALT/SGPT 39 U/L (12-78); ANION GAP 9 MEQ/L (8-16); AST/SGOT 91 U/L (15-37); BILIRUBIN,TOTAL 3.1 MG/DL (0.2-1.0); BLOOD UREA NITROGEN 16 MG/DL (7-18); CALCIUM LEVEL 8.9 MG/DL (8.8-10.2); CARBON DIOXIDE LEVEL 34 MEQ/L (21-32); CHLORIDE LEVEL 102 MEQ/L (98-107); CREATININE FOR GFR 0.62 MG/DL (0.70-1.30); GLOMERULAR FILTRATION RATE > 60.0 (>49); GLUCOSE, FASTING 132 MG/DL (80-110); MAGNESIUM LEVEL 2.2 MG/DL (1.8-2.4); POTASSIUM SERUM 4.2 MEQ/L (3.5-5.1); SODIUM LEVEL 145 MEQ/L (136-145); TOTAL PROTEIN 6.6 GM/DL (6.4-8.2)
[2017-04-04 08:45] VITALS: BP 118/64
[2017-04-04 10:29] VITALS: BP 118/64
[2017-04-04] MEDS: ATENOLOL 50 MG TAB PO SCH (10:29)
[2017-04-04] MEDS: rifAXIMin 550 MG TAB (XIFAXAN) PO SCH ×2 (10:30→21:03)
[2017-04-04] MEDS: CYANOCOBALAMIN 500 MCG TAB PO SCH (10:30)
[2017-04-04] MEDS: MULTIVITAMINS/MINERALS THERAP 1 TAB PO SCH (10:30)
[2017-04-04] MEDS: LORATADINE 10 MG TAB PO SCH (10:30)
[2017-04-04] MEDS: THIAMINE 100 MG TAB PO SCH (10:31)
[2017-04-04] MEDS: FOLIC ACID 1 MG TAB PO SCH (10:31)
[2017-04-04] MEDS: AZITHROMYCIN INJ 500 MG, VIAL MATE ADAPTER 1 EACH in D5W 250 ML IV SCH (10:32)
[2017-04-04] MEDS: NYSTATIN 100,000 UNITS/GM TOPICAL PWD 15 GM TOP SCH (10:33)
[2017-04-04] MEDS: SPIRONOLACTONE 12.5MG PER 1/2 TABLET PO SCH ×2 (12:04→17:36)
[2017-04-04 12:10] VITALS: BP 124/70
--- NOTE | 2017-04-04 13:54 | IPN ---
DATE: 04/04/2017 SUBJECTIVE: The patient tells me that his breathing much easily. He is more comfortable today. He denies any pain. He tells me that he has been up and ambulating and feels as though he is improved and back to his normal. OBJECTIVE: VITAL SIGNS: Temperature 96.6, pulse 73, respiratory rate 18, blood pressure 129/74, oxygen (O2) saturation 94% on room air. GENERAL: He is a very pleasant, obese man sitting on the edge of his bed. He does not appear to be in any acute distress whatsoever. HEENT: Cranial nerves II through XII are grossly intact. He has moist mucous membranes. I appreciate mild elevation of his central venous pressure (CVP). CARDIOVASCULAR EXAMINATION: S1, S2 regular. RESPIRATORY EXAMINATION: Quite clear. There are some mild bibasilar rales. ABDOMINAL EXAMINATION: Grossly obese. Extremities: No clubbing or cyanosis. There is trace edema bilaterally. LABORATORY STUDIES: WBC 8.4, hemoglobin 14.6, hematocrit 43.1, platelet count 148. Chemistry panel: Sodium 145, potassium 4.2, chloride 102, bicarbonate 34, BUN 16, creatinine 0.6, total bilirubin elevated at 3.1, AST elevated at 91, alkaline phosphatase elevated at 143. INR is 1.65. No new microbiology. Less than 250 nucleated cells on his ascites tap from yesterday. IMAGING: The patient did have a paracentesis completed yesterday, which removed almost 5 liters of yellow colored fluid. ASSESSMENT AND PLAN: This is a 62-year-old man with a rhinovirus infection. PROBLEMS: 1. Shortness of breath, likely secondary to rhinovirus infection. This is also the likely etiology for his fevers. He is now afebrile. He does appear to be improving. Also feel that his shortness of breath was contributed to by decompensated liver cirrhosis with ascites and the expansion of his diaphragm as well as some pulmonary edema. With continued diuresis with Lasix status post paracentesis and supportive care for his viral infection, his respiratory status does appear to be improving. He is on room air. I will have them check an ambulating oxygen saturation tomorrow to ensure that he has returned to his baseline and does not require any home oxygen requirement. He unfortunately has not cleared physical therapy and has to climb several steps before discharge. I will discontinue all antibacterials as there is no evidence of bacterial infection at this time. 2. Liver cirrhosis related to alcoholism and alcoholic hepatitis. Will continue his on beta-joseph, thiamine, folic acid, rifaximine, Lasix, and Aldactone. 4. Pulmonary artery hypertension/chronic obstructive pulmonary disease (COPD). He has been on Solu-Medrol for several days. At this point, I will transition him to prednisone for his alcoholic liver cirrhosis. At the present time, he appears to be doing quite well. He is not exhibiting any wheeze. He is on nebulizer treatments as needed. 5. Hypokalemia, resolved. 7. Thrombocytopenia, related to his cirrhosis. 8. Congestive heart failure, diastolic, also likely fluid retention related to liver disease as well. He had an echocardiogram that revealed a normal ejection fraction (EF) as well as moderately dilated right heart chambers , in keeping with pulmonary hypertension. Continue with diuresis and blood pressure control. 9. Hypertension. Continue with beta joseph. 10. Alcohol abuse. He is on folate, thiamine, and multivitamin. We are monitoring him for any withdrawal symptoms which he is not exhibiting. DISPOSITION: Pending resolution of his oxygen requirement and clearance from physical therapy. MTDD
[2017-04-04] MEDS: predniSONE 20 MG TAB PO SCH (13:59)
[2017-04-04 14:10] VITALS: BP 124/70
[2017-04-04] MEDS ORDERED: INFLUENZA QUADRIVALENT PF VACCINE 0.5ML SYRINGE (90686) IM ONE (15:00)
[2017-04-04] MEDS: PANTOPRAZOLE 40MG INJ (PROTONIX) (C9113) IV SCH (17:35)
[2017-04-04] MEDS: LACTOBACILLUS ACIDOPHILUS CAP (BACID) PO SCH (17:36)
[2017-04-04 21:07] VITALS: BP 122/78
[2017-04-05] MEDS: IPRATROPIUM 0.5MG/ALBUTEROL 2.5MG INH SOL UD 3ML (DUONEB)(J7620) NEB SCH ×2 (01:18→07:51)
[2017-04-05 05:05] VITALS: BP 117/70
[2017-04-05] MEDS: HEPARIN SOD (PORCINE) 5000 UNITS/ML VIAL SC SCH (05:53)
[2017-04-05] MEDS: FUROSEMIDE 40 MG/4 ML VIAL (J1940) IV SCH (05:53)
[2017-04-05 06:41] LABS: MEAN CORPUSCULAR HEMOGLOBIN 35.8 pg (27.0-33.0); MEAN CORPUSCULAR HGB CONC 33.3 g/dl (32.0-36.5); MEAN CORPUSCULAR VOLUME 107.7 fl (80.0-96.0); RED CELL DISTRIBUTION WIDTH 13.1 % (11.5-14.5); WHITE BLOOD COUNT 8.3 K/mm3 (4.0-10.0)
[2017-04-05 06:48] LABS: INR 1.66
[2017-04-05 06:53] LABS: ALBUMIN 2.4 GM/DL (3.2-5.2); ALKALINE PHOSPHATASE 134 U/L (45-117); ALT/SGPT 42 U/L (12-78); ANION GAP 10 MEQ/L (8-16); AST/SGOT 102 U/L (15-37); BILIRUBIN,TOTAL 3.6 MG/DL (0.2-1.0); BLOOD UREA NITROGEN 17 MG/DL (7-18); CALCIUM LEVEL 8.5 MG/DL (8.8-10.2); CARBON DIOXIDE LEVEL 31 MEQ/L (21-32); CHLORIDE LEVEL 101 MEQ/L (98-107); CREATININE FOR GFR 0.55 MG/DL (0.70-1.30); GLOMERULAR FILTRATION RATE > 60.0 (>49); GLUCOSE, FASTING 94 MG/DL (80-110); MAGNESIUM LEVEL 2.1 MG/DL (1.8-2.4); POTASSIUM SERUM 3.4 MEQ/L (3.5-5.1); SODIUM LEVEL 142 MEQ/L (136-145); TOTAL PROTEIN 6.4 GM/DL (6.4-8.2)
[2017-04-05] MEDS: THIAMINE 100 MG TAB PO SCH (08:42)
[2017-04-05] MEDS: CYANOCOBALAMIN 500 MCG TAB PO SCH (08:42)
[2017-04-05] MEDS: FOLIC ACID 1 MG TAB PO SCH (08:42)
[2017-04-05] MEDS: rifAXIMin 550 MG TAB (XIFAXAN) PO SCH (08:42)
[2017-04-05] MEDS: predniSONE 20 MG TAB PO SCH (08:42)
[2017-04-05] MEDS: SPIRONOLACTONE 12.5MG PER 1/2 TABLET PO SCH (08:42)
[2017-04-05] MEDS: MULTIVITAMINS/MINERALS THERAP 1 TAB PO SCH (08:42)
[2017-04-05] MEDS: LORATADINE 10 MG TAB PO SCH (08:42)
[2017-04-05] MEDS: LACTOBACILLUS ACIDOPHILUS CAP (BACID) PO SCH (08:42)
[2017-04-05] MEDS: NYSTATIN 100,000 UNITS/GM TOPICAL PWD 15 GM TOP SCH (08:43)
[2017-04-05] MEDS: ATENOLOL 50 MG TAB PO SCH (08:43)
[2017-04-05] MEDS ORDERED: SPIR25TA2 PO (10:20)
[2017-04-05] MEDS ORDERED: FOLI1TAB4 PO (10:20)
[2017-04-05] MEDS ORDERED: PRED10PA PO (10:20)
[2017-04-05] MEDS ORDERED: THIA100TA PO (10:20)
[2017-04-05] MEDS ORDERED: LASI40TA PO (10:26)
[2017-04-05] MEDS ORDERED: K-TA10TA2 PO (11:22)
[2017-04-05] MEDS ORDERED: POTASSIUM CHLORIDE 10 MEQ SR TABLET PO ONE (11:30)
--- NOTE | 2017-04-05 20:54 | DSES ---
DATE OF ADMISSION: 04/01/2017 DATE OF DISCHARGE: 04/05/2017 DISCHARGE DIAGNOSIS: Human rhinovirus/enterovirus infection. SECONDARY DIAGNOSES: 1. Shortness of breath. 2. Decompensated liver cirrhosis. 3. Pulmonary artery hypertension. 4. Decompensated chronic obstructive pulmonary disease. 5. Hypokalemia. 6. Thrombocytopenia. 7. Diastolic congestive heart failure. 8. Hypertension. 9. Alcohol abuse. HOSPITAL COURSE: The patient is a 62-year-old male who presented to the hospital initially on April 01, initially with shortness of breath. He did have a fever and diarrhea at the time as well. There was initially concern for decompensated chronic obstructive pulmonary disease (COPD), and as such he was admitted to the medical/surgical service. He was monitored very closely. His cultures returned negative. His nasopharynx swab did return positive for human rhinovirus and enterovirus. Patient's shortness of breath was likely multifactorial from this. Also some COPD, also with some diaphragmatic restriction secondary to ascites and an element of COPD and possibly even pulmonary edema. He was treated subsequently on all fronts for these, and his respiratory status did improve significantly. He did have a paracentesis. He did under IV Lasix diuresis. He did get treatment with steroids and supportive care for his viral infection. His symptoms did resolve and returned to his baseline. SUBJECTIVE: The patient reports that he feels well today. He feels back to his normal. He denies any chest pain, fevers, chills, nausea, vomiting, or diarrhea. OBJECTIVE: VITAL SIGNS: Temperature 97.6, pulse 68, respiratory rate 18, blood pressure (BP) 117/70, oxygen saturation 94% on room air. GENERAL: He is a very pleasant, obese man sitting on a recliner working on his laptop. He is wearing glasses, reading. He does not appear to be in any acute distress whatsoever. HEENT: Cranial nerves II-XII are grossly intact. He has moist mucous membranes. No appreciable elevation in central venous pressure. CARDIOVASCULAR: S1, S2, regular. RESPIRATORY: Clear. ABDOMEN: Grossly obese. There is shifting dullness and positive fluid wave with no tense ascites. EXTREMITIES: He has1+ edema bilaterally. LABORATORY STUDIES: WBC 8.3, hemoglobin 14.2, hematocrit 42.8, platelet count 124. Chemistry panel: Sodium 142, potassium 3.4, repleted chloride 101, bicarbonate 31, BUN 17, creatinine 0.5. AST 102, alkaline phosphatase 134. INR 1.6. Ascites tap revealed nucleated cells less than 250 times two. Microbiology was only by mouth for human rhinovirus; otherwise all other studies were negative. He did have a paracentesis on April 03, where 5 liters of fluid was removed. He also had a CT scan of the abdomen on April 01 that revealed marked ascites, incidental hepatic cyst, and 2 cm right renal cyst, as well as moderate to large bilateral pleural effusions, passive atelectasis. He did have CT angiography of the chest that revealed cephalization suggestive of pulmonary venous congestion. ASSESSMENT AND PLAN: This is a 62-year-old man with shortness of breath, likely multifactorial in nature. 1. Shortness of breath, most directly due to human rhinovirus/enterovirus. Supportive care was provided. The patient does appear to be resolving. In addition, the patient was also treated for decompensated chronic obstructive pulmonary disease (COPD). As such, he is on a prednisone taper, which he has tolerated well, as well as nebulizer treatments as needed, which he has tolerated well. The patient was also treated for decompensated diastolic congestive heart failure. He had an echocardiogram that revealed a preserved ejection fraction. He did under IV diuresis with Lasix. He will be discharged on Aldactone and Lasix with low-dose potassium supplementation as well. Close followup with primary care physician (PCP). Advised to a 2-gram sodium diet, check his weights daily, and call if he gains more than 2 pounds in 24 hours. The patient also did have a paracentesis, in which 5 liters of fluid was removed from his abdomen. With the aforementioned measures, his shortness of breath has completely resolved. He has worked with physical therapy today and cleared stairs without any oxygen requirement. 2. Liver cirrhosis related to alcoholic hepatitis. He is on a beta joseph, Aldactone, Lasix, folic acid, thiamine. Cessation counseling provided. He is very receptive to it at this time. 3. Hypokalemia, resolved. 4. Thrombocytopenia, likely related to cirrhosis. 5. Congestive heart failure, as outlined above. 6. Hypertension. He will continue on beta blockers. Blood pressure is well controlled. 7. Alcohol abuse, as outlined above. He has been on folic acid, thiamine, multivitamin. He did not exhibit any withdrawal symptoms while in the hospital. DISPOSITION: The patient is being discharged home. He has been cleared by physical therapy. He is independent of his activities of daily living (ADLs). He is back to his functional baseline. His clinical status has resolved. He is to followup with his PCP within 7 days. His activity and diet are as prior to admission with an 1800 mL fluid restriction. He will return to the ER if his symptoms worsen. MEDICATIONS AT TIME OF DISCHARGE: - folic acid 1 mg daily - Lasix 40 mg daily - potassium chloride 10 mEq by mouth daily - prednisone 20 mg for 3 days, then 10 mg for 3 days, then resume his previous prednisone dosing - spironolactone 12.5 mg twice a day - thiamine 100 mg daily - Tylenol 650 every 4 hours as needed for pain - DuoNeb every 4 hours as needed for shortness of breath - atenolol 50 mg daily - calcium 600 mg daily - vitamin B12 at 1000 mcg daily - loratadine 10 mg daily - multivitamin one tablet daily - nystatin topically under his panus daily - pantoprazole 40 mg daily - tramadol 50 mg four times a day as needed for pain Greater than 30 minutes spent organizing disposition.
== END 2017-04-05 11:50 | disposition home or self-care (01) | DRG 432 ==
LOC: M ICU 16:00 → M MSPAV 04-03 18:38
PROVIDERS: ADMIT Hospitalist; ATTEND Internal Medicine
PROC: 30253J1 (ICD-10-PCS; principal; 2017-04-01)
DX: K70.31 Alcoholic cirrhosis of liver with ascites (principal); I50.33 Acute on chronic diastolic (congestive) heart failure; J44.1 Chronic obstructive pulmonary disease with (acute) exacerbation; Z68.42 Body mass index [BMI] 45.0-49.9, adult; E66.01 Morbid (severe) obesity due to excess calories; I11.0 Hypertensive heart disease with heart failure; K70.11 Alcoholic hepatitis with ascites; E88.09 Other disorders of plasma-protein metabolism, not elsewhere classified; I27.2 Other secondary pulmonary hypertension; D69.6 Thrombocytopenia, unspecified; E87.6 Hypokalemia; B97.19 Other enterovirus as the cause of diseases classified elsewhere; J00 Acute nasopharyngitis [common cold]; G47.33 Obstructive sleep apnea (adult) (pediatric); F10.20 Alcohol dependence, uncomplicated; Z98.84 Bariatric surgery status; Z79.52 Long term (current) use of systemic steroids; Z79.899 Other long term (current) drug therapy; Z90.49 Acquired absence of other specified parts of digestive tract

== ENCOUNTER → 2017-07-17 | Outpatient (CLI) | payer MEDICARE, BC, OTHER ==
[~2017-07-17] MED LIST: ATEN50TA2 PO; CALC500T49 PO; CALC600T31 PO; FOLI1TAB4 PO; IPRASOL4 INH; K-TA10TA2 PO; LASI40TA PO; LISI10TA4 PO; LORA10TA2 PO; NYST10PW TOP; POTA10CA PO; PRED10PA PO; PRED1TABL PO; PROT1TAB2 PO; ROCE1INJ4 INJ; SPIR25TA2 PO; THIA100TA PO; TRAM50TA2 PO; TYLE325T5 PO; VITA10002 PO; VITMTA PO
--- NOTE | 2017-07-17 12:18 | REP ---
LIMITED ABDOMEN ULTRASOUND: Limited abdominal ultrasound is performed to evaluate for ascites. Only minimal ascites is seen scattered throughout the abdomen. The scheduled therapeutic paracentesis is postponed due to insufficient ascites fluid. Signed by Dimitri Lim MD 07/17/2017 05:24 P
== END ==
LOC: M RADPRO 10:38
PROVIDERS: ATTEND Internal Medicine Gastroenterology
DX: K70.30 Alcoholic cirrhosis of liver without ascites (principal); Z98.84 Bariatric surgery status; Z87.891 Personal history of nicotine dependence; Z88.8 Allergy status to other drugs, medicaments and biological substances; Z79.899 Other long term (current) drug therapy; Z53.9 Procedure and treatment not carried out, unspecified reason

== ENCOUNTER → 2024-04-24 | Outpatient (CLI) | payer MEDICARE, BC ==
[~2024-04-24] MED LIST changes: +CYAN100049 PO; +FOLI1TAB11 PO; -FOLI1TAB4 PO; +IPRA0.00 INH; -IPRASOL4 INH; -K-TA10TA2 PO; -LASI40TA PO; +LASI40TA9 PO; +LISI10TA22 PO; -LISI10TA4 PO; +LORA-243 PO; -LORA10TA2 PO; +NYST-15 TOP; -NYST10PW TOP; +POTA-136 PO; +POTA-165 PO; -POTA10CA PO; -ROCE1INJ4 INJ; +ROCE1INJ6 INJ; +SPIR-10 PO; -SPIR25TA2 PO; -VITA10002 PO
== END ==
LOC: M RAD 09:47
PROVIDERS: ATTEND Orthopaedic Surgery
DX: M84.521A Pathological fracture in neoplastic disease, right humerus, initial encounter for fracture (principal)
CPT/HCPCS: 78315; A9503

== ENCOUNTER → 2024-05-01 | Outpatient (REF) | payer MEDICARE, BC | LOC: M LAB REF 10:30 | PROVIDERS: ATTEND Pathology Anatomic Pathology & Clinical Pathology | DX: C79.51 Secondary malignant neoplasm of bone (principal); C80.1 Malignant (primary) neoplasm, unspecified; C78.7 Secondary malignant neoplasm of liver and intrahepatic bile duct; C80.0 Disseminated malignant neoplasm, unspecified ==

== ENCOUNTER → 2024-05-23 | Outpatient (CLI) | payer MEDICARE, BC | LOC: M ONCR 09:37 | PROVIDERS: ATTEND General Practice | DX: C79.51 Secondary malignant neoplasm of bone (principal); C80.1 Malignant (primary) neoplasm, unspecified; F17.290 Nicotine dependence, other tobacco product, uncomplicated; Z79.899 Other long term (current) drug therapy; Z98.84 Bariatric surgery status; Z90.79 Acquired absence of other genital organ(s) ==

== ENCOUNTER → 2024-05-29 | Outpatient (RCR) | payer MEDICARE, BC | LOC: M ONCR 05-23 11:19 | PROVIDERS: ATTEND General Practice | DX: Z51.0 Encounter for antineoplastic radiation therapy (principal); C79.51 Secondary malignant neoplasm of bone ==

== ENCOUNTER → 2024-06-10 | Outpatient (CLI) | payer MEDICARE, BC ==
[~2024-06-10] MED LIST changes: +PROHANCE 279.3MG/ML 15ML VIAL As Ordered ONE; +PROHANCE 279.3MG/ML 5ML VIAL As Ordered ONE
== END ==
LOC: M RAD 10:20
PROVIDERS: ATTEND General Practice
DX: C79.51 Secondary malignant neoplasm of bone (principal)
CPT/HCPCS: 70553; A9576